=== PATIENT | female | born 1990 | race Caucasian/White ===

== ENCOUNTER → 2024-05-17 13:13 | Outpatient (REF) | payer BC, SELFPAY ==
[2024-05-17 14:45] LABS: % Basophils 0.8 % (0-2); % Eosinophils 3.2 % (0-6); % Immature Granulocytes 0.2 % (0-0.5); % Lymphocytes 30.6 % (20.5-51.1); % Monocytes 9.3 % (1.7-9.3); % Neutrophils 55.9 % (42.2-75.2); Absolute Eosinophils 0.2 10^3/uL (0-0.7); Absolute Lymphocytes 1.5 10^3/uL (1.2-3.4); Absolute Monocytes 0.4 10^3/uL (0.1-0.6); Absolute Neutrophils 2.7 10^3/uL (1.4-6.5); Hematocrit 37.3 % (37.0-47.0); Hemoglobin 13.2 g/dL (12.0-16.0); Mean Corp Hgb Conc. 35.4 g/dL (33.0-37.0); Mean Corpuscular Hgb 32.5 pg (27.0-31.0); Mean Corpuscular Volume 91.9 fL (81.0-99.0); Nucleated Red Blood Cells % 0 %; Platelet Count 167 10^3/uL (130-400); Red Blood Cell Count 4.06 10^6/uL (4.20-5.40); Red Cell Dist. Width 13.2 % (11.5-14.5); White Blood Cell Count 4.7 10^3/uL (4.8-10.8)
[2024-05-17 15:20] LABS: ALT (SGPT) 19 U/L (0-35); AST (SGOT) 33 U/L (14-36); Albumin 4.5 g/dl (3.5-5.0); Alkaline Phosphatase 48 U/L (38-126); Blood Urea Nitrogen 12 mg/dl (7-17); Calcium 9.7 mg/dl (8.4-10.2); Carbon Dioxide 24 mmol/L (22-30); Chloride 103 mmol/L (98-107); Glucose 91 mg/dl (70-99); Potassium 4.2 mmol/L (3.5-5.1); Sodium 140 mmol/L (135-145); Total Bilirubin 0.3 mg/dl (0.2-1.3); Total Protein 6.9 g/dl (6.3-8.2); eGFR > 60.00
== END ==
LOC: RCS 13:13
PROVIDERS: ATTENDING PHYSICIAN Surgery Plastic and Reconstructive Surgery; FAMILY PHYSICIAN Family Medicine
DX: Z01.818 Encounter for other preprocedural examination (principal)
CPT/HCPCS: 36415; 80053; 85025; 93005

== ENCOUNTER 2024-07-07 06:17 | Inpatient (IN) | payer BC, SELFPAY ==
[2024-07-02 08:44] LABS: % Basophils 0.9 % (0-2); % Eosinophils 4.2 % (0-6); % Immature Granulocytes 0.4 % (0-0.5); % Lymphocytes 27.9 % (20.5-51.1); % Neutrophils 58.6 % (42.2-75.2); Absolute Eosinophils 0.2 10^3/uL (0-0.7); Absolute Lymphocytes 1.3 10^3/uL (1.2-3.4); Absolute Monocytes 0.4 10^3/uL (0.1-0.6); Absolute Neutrophils 2.7 10^3/uL (1.4-6.5); Hematocrit 38.5 % (37.0-47.0); Hemoglobin 12.7 g/dL (12.0-16.0); Mean Corpuscular Hgb 31.8 pg (27.0-31.0); Mean Corpuscular Volume 96.3 fL (81.0-99.0); Mean Platelet Volume 10.9 fL (7.4-10.4); Nucleated Red Blood Cells % 0 %; Platelet Count 158 10^3/uL (130-400); Red Cell Dist. Width 12.8 % (11.5-14.5); White Blood Cell Count 4.5 10^3/uL (4.8-10.8)
[2024-07-02 09:11] LABS: ALT (SGPT) 25 U/L (0-35); AST (SGOT) 29 U/L (14-36); Albumin 4.1 g/dl (3.5-5.0); Alkaline Phosphatase 44 U/L (38-126); Blood Urea Nitrogen 13 mg/dl (7-17); Calcium 9.3 mg/dl (8.4-10.2); Carbon Dioxide 27 mmol/L (22-30); Chloride 102 mmol/L (98-107); Glucose 94 mg/dl (70-99); Potassium 4.1 mmol/L (3.5-5.1); Sodium 138 mmol/L (135-145); Total Bilirubin 0.7 mg/dl (0.2-1.3); Total Protein 6.5 g/dl (6.3-8.2); eGFR > 60.00
[2024-07-02 10:35] VITALS: BMI 20.8
--- NOTE | 2024-07-05 07:48 | PTCARENOTE ---
Patients 05/17 ECG abnormal- reviewed by Dr. Mable grande if stable, no additional interventions required
[2024-07-07] VITALS (13 sets, daily range): BP systolic 0–115; BP diastolic 54–78; BMI 20.8
[2024-07-07] MEDS: TYLENOL 1000 MG PO ×3 (06:33→23:08)
--- NOTE | 2024-07-07 07:15 | W.SUR.PREOP ---
Pre-Operative Surgical Note
-
I have examined this patient prior to the performance of the scheduled procedure.
The patient's condition is unchanged from the time of the current History and
Physical and the patient is able to undergo the scheduled procedure.
--- NOTE | 2024-07-07 10:51 | OR.RPT ---
Operative Report
Operative Report
The patient is a 34-year-old female who carries a deleterious BRCA variant and presents for prophylactic bilateral mastectomies and immediate reconstruction with Dr. Mason.
The patient presented on the day of surgery and verified site and procedure. Plastic surgery marked her skin lines and inframammary incisions. DVT and antibiotic prophylaxis were provided and the patient was taken to the operating room. In the
supine position general anesthesia was induced with an LMA mask. A Simeon catheter was inserted using aseptic technique. Both breast and upper abdomen were prepped and draped in usual sterile fashion. Both breasts were approached in the following
fashion. An inframammary incision was made sharply with the blade. Dissection was carried down to fascia using the cautery and the breast was elevated off the pectoralis major and chest wall using a PlasmaBlade and the Invuity retractor. Then the
skin and subcutaneous tissue were elevated from the breast capsule using the same equipment. On the left side the nipple areolar complex plaques was incised and reapproximated using simple interrupted 5-0 Prolene's. Breasts were taken off the
chest wall in the superior to inferior direction. Tissue was oriented for the pathologist and sent for permanent analysis. At this juncture plastic surgery entered to begin the reconstructive portion of the procedure. All sponge needle and
instrument counts were correct at this point.
--- NOTE | 2024-07-07 12:07 | W.IMMPOSTOP ---
Surgical Immed Post Op Note
-
Primary Surgeon: GISELLE Mason MD
Assisting Surgeon:
Pre-op Diagnosis: genetic predisposition to breast cancer
Post-op Diagnosis: same
Procedure Performed: bilateral immediate tissue command post craftsman reconstruction, insertion of ADM, spy angiography
Anesthesia Type: General
Specimen / Cultures: Per Dr. Grant
Estimated Blood Loss: 10 cc for 30 cc total
Complications: none
Operative Findings: as expected
--- NOTE | 2024-07-07 12:07 | OR.RPT ---
Operative Report
Operative Report
Date of Surgery: 07/07/24
Surgeon: GISELLE Mason MD
Preoperative diagnosis: Genetic predisposition to breast cancer
Postoperative diagnosis: Same
Procedure:
1. Bilateral immediate breast reconstruction with tissue expanders
2. Insertion of ADM, sling bilateral
3. Spy angiography
Complications: None
Anesthesia: General
EBL: 30 cc
Broommaker size: 12 cm
Indications for procedure: Patient was referred to me by Dr. Grant with a genetic predisposition to breast cancer. She was planned to undergo bilateral mastectomy. We discussed her options for breast reconstruction at length including implant
based and autologous options. The patient opted for immediate reconstruction with tissue expanders. She understands that the final reconstruction will be staged. We also discussed the use of ADM and spy angiography. Risks include reconstructive
failure, capsular contracture, infection, delayed wound healing, mastectomy skin flap necrosis, hematoma, seroma and need for repeat procedure. Patient understood these risks and desired to proceed. Consents were signed accordingly.
Procedure in detail: Patient was identified the preoperative area and the surgical site was confirmed to be the bilateral breast. All questions were answered and consents were confirmed. Patient was then sat upright and normal anatomical landmarks
were marked including midline and inframammary fold. Patient was then taken back to the operating room placed supine on the table. She was prepped and draped in the usual sterile fashion using ChloraPrep solution. A Simeon catheter was placed. A
timeout for patient safety was performed was confirmed that bilateral SCDs were in place and preoperative antibiotics administered. The procedure began with Dr. Grant first performing the mastectomy. Her op report will be dictated separately.
When I entered the procedure, the first sided mastectomy had been completed. As such I inspected the wound bed of the chest wall and ensured meticulous hemostasis. The base width was measured and appropriate tissue production line solderer was selected. One 6 x
16 sheet of Cortiva ADM was soaked in dilute Betadine solution. dissection continued under the pectoralis major it from the chest wall. This formed a submuscular pocket for the tissue production line solderer. The production line solderer was then sutured to the
chest wall with a series of 2-0 silk sutures. Inferolateral ADM sling was sutured to the chest wall and border of the pectoralis using 2-0 Vicryl. Pectoralis and intercostal blocks were performed with Marcaine. 2 drains were then placed in the
preaxial area line with a long subcutaneous tunnel and sutured in place with 2-0 Prolene sutures. The wound was irrigated with double antibiotic solution and dilute Betadine. The mastectomy incisions were then closed with a series of 3-0 Vicryl's
in the deep subcutaneous tissues followed by 3-0 and 4-0 Monocryl's in the deep dermis and superficial skin.
Attention was then placed on the contralateral side after completion of the mastectomy. The exact same procedure was performed. An production line solderer of the same size was opened and 1 sheet of ADM was soaked in Betadine. The pectoralis muscle was elevated
from the chest wall to create a pocket for the production line solderer. The Broommaker was then inserted and sutured to the chest wall. ADM was used as an inferolateral sling and sutured to the chest wall and pectoralis with 2-0 Vicryls. Pectoralis and
intercostal blocks were performed. Meticulous hemostasis was ensured and the wound was irrigated with combination of double antibiotic solution consisting of Ancef and gentamicin as well as dilute Betadine. The wound was closed in layers with 3-0
Vicryl followed by 3-0 Monocryl and 4-0 Monocryl superficial skin.
spy angiography was performed to confirmed adequate vascularity the bilateral mastectomy skin flaps. Of note a small area of buttonhole was repaired on the left nipple areolar complex with a series of 4-0 Prolene's. Vascularity improved with the
application of Nitropaste.
The wounds were dressed accordingly and a supportive bra was placed. The patient was extubated taken to the PACU for further care. All counts were correct at the end the case was performed out complication.
--- NOTE | 2024-07-07 13:43 | CM ---
Reviewed the chart notes and spoke with the patient at the bedside. The patient's mother and two son's reside with her in a one story home with no steps to enter. The patient reports no DME/VN/SNF in the past. The patient confirmed her pharmacy
of choice is the [facility]. Discussed VN options with the patient. Patient agreeable to VN. Referral sent. continues to be available to patient/family and is monitoring medical plan for needs at discharge.
Plan: Discharge to home when medically stable with VN services.
--- NOTE | 2024-07-07 14:00 | VNURNOTE ---
Home Health Liaison spoke with patient to discuss [facility] nurse/therapy, visits, schedule and homebound status. Patient has large dogs at home, pet policy reviewed. Patient is agreeable and understands that visits at home will be 2-3 x per week to
assess and teach medical and drain management.
[facility] brochure provided with contact information. Patient is aware that [facility] will contact them for start of care in 1-2 days after discharge from .
[facility] referral in [facility].
[2024-07-07] MEDS: ZOFRAN 4 MG IV (14:34)
[2024-07-07] MEDS: NEURONTIN 100 MG PO ×2 (16:50→22:27)
[2024-07-07] MEDS: ANCEF 5 IV (19:48)
[2024-07-07] MEDS: SINGULAIR 10 MG PO (22:27)
[2024-07-07] MEDS: SYMBICORT 160/4.5 MCG INHALER 2 PUFF INH (22:30)
[2024-07-08] MEDS: ANCEF 5 IV (03:05)
[2024-07-08 03:19] VITALS: BP 104/58
[2024-07-08] MEDS: TYLENOL 1000 MG PO (05:36)
[2024-07-08 06:55] LABS: Hematocrit 33.3 % (37.0-47.0); Hemoglobin 11.8 g/dL (12.0-16.0)
[2024-07-08 07:25] LABS: Blood Urea Nitrogen 7 mg/dl (7-17); Calcium 9.2 mg/dl (8.4-10.2); Carbon Dioxide 24 mmol/L (22-30); Chloride 105 mmol/L (98-107); Estimated Creatinine Clearance 107 ml/min; Glucose 103 mg/dl (70-99); Potassium 4.5 mmol/L (3.5-5.1); Sodium 137 mmol/L (135-145); eGFR > 60.00
[2024-07-08 07:50] VITALS: BP 89/60
[2024-07-08] MEDS: SYMBICORT 160/4.5 MCG INHALER 2 PUFF INH (08:08)
[2024-07-08] MEDS: NEURONTIN 100 MG PO (08:21)
[2024-07-08 08:58] VITALS: BP 100/61
--- NOTE | 2024-07-08 09:08 | W.PN.UPDATE ---
Update Note
Progress Note Update
The patient is POD #1 S/P bilateral prophylactic mastectomies for a deleterious BRCA variant with immediate reconstruction with bilateral tissue expanders. She is doing well and has no complaints. She did sleep last night. Tolerating PO intake and
current pain management regimen. Wounds healing well; left nipple with some ischemia, but appears viable. Pt will be discharge to home with VNA in place. Follow up with Dr. Mason next week and with me in 2 weeks.
--- NOTE | 2024-07-08 09:13 | W.DCSUMMARY ---
Discharge Summary
Discharge Data
Date of Admission: 07/07/24
Date of Discharge: 07/08/24
Total time spent discharging patient (in min): 15
-
Pending Results: Yes
Additional Pending Results:
final pathology
Hospital Course
Uneventful
Discharge Plan
-
Patient Disposition: Home (Routine Discharge)
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
Condition: Good
Diet: Regular
Activity: No strenuous activity
Additional Activity: No heavy lifting >10lbs
Driving Restrictions: Not until seen by your Dr
Bathing Restrictions: OK to Shower
Other Services: VN
Wound Care: Remove dressings if they become wet. Strip and record drain output twice daily, lightly compressive sports bra
Referrals:
Phylicia Thomas MD [Family Provider] -
Prescriptions:
New
tramadol 50 mg Tablet
50 - 100 mg PO Q6HPRN PRN (Reason: pain) 7 Days Qty: 20 0RF
acetaminophen [Tylenol Extra Strength] 500 mg Tablet
1,000 mg PO Q6 30 Days Qty: 240 0RF
gabapentin 100 mg Capsule
100 mg PO TID 30 Days Qty: 90 2RF
diazepam 5 mg Tablet
5 mg PO TIDPRN PRN (Reason: Muscle Spasms) 14 Days Qty: 42 0RF
cefadroxil 500 mg capsule
500 mg PO BID Qty: 42 0RF
Continued
montelukast [Singulair] 10 mg Tablet
10 mg PO HS
budesonide-formoterol [Symbicort] 160-4.5 mcg/actuation Hfa Aerosol Inhaler
2 puff INHALATION BID
Discharge Orders:
Discharge Patient (As Directed); Ordered 07/08/24
Ordered By: Noe Mason
Discharge Date and Time
Print Language: NORWEGIAN
[2024-07-08 11:00] VITALS: BP 113/72
--- NOTE | 2024-07-08 11:14 | CM ---
Pt for discharge today
Mother to transport home
[facility] to follow for VN
Plan - home with [facility]
== END 2024-07-08 12:05 | disposition home health service (06) | DRG 585 ==
LOC: 2 SOUTH 06:17
PROVIDERS: ADMITTING PHYSICIAN Surgery Plastic and Reconstructive Surgery; FAMILY PHYSICIAN Family Medicine; REFERRING PHYSICIAN Surgery
PROC: 0HHV0NZ Insertion of Tissue Expander into Bilateral Breast, Open Approach (ICD-10-PCS; 2024-07-07)
PROC: 0HTV0ZZ Resection of Bilateral Breast, Open Approach (ICD-10-PCS; 2024-07-07)
DX: Z40.01 Encounter for prophylactic removal of breast (principal); J45.40 Moderate persistent asthma, uncomplicated; F41.9 Anxiety disorder, unspecified; Z15.01 Genetic susceptibility to malignant neoplasm of breast; Z80.3 Family history of malignant neoplasm of breast; Z79.51 Long term (current) use of inhaled steroids; Z79.899 Other long term (current) drug therapy
CPT/HCPCS: 88305; 36415; 80048; 80053; 82306; 84134; 85014; 85018; 85025; 94640; C1789; L8000; Q4100

== ENCOUNTER → 2024-10-26 07:30 | Outpatient (REF) | payer BC, SELFPAY | LOC: CLAB 07:30 | PROVIDERS: ATTENDING PHYSICIAN Surgery Plastic and Reconstructive Surgery | DX: Z41.1 Encounter for cosmetic surgery (principal); Z42.1 Encounter for breast reconstruction following mastectomy | CPT/HCPCS: 88304 ==